=== PATIENT | male | born 1960 | race Caucasian/White ===

== ENCOUNTER → 2016-05-06 | Outpatient (CLI) | payer BC ==
[~2016-05-06] MED LIST: CENTRUM SILVER1 EAC3 PO; COMPAZINE10 MG PO; LEVAQUIN500 MG PO; LEVOFLOXACIN500 MG PO; MEDROL DOSEPAK4 MG PO; SKELAXIN800 MG PO; ULTRAM50 MG PO
== END | disposition home or self-care (01) ==
LOC: AMB 04-27 09:00
DX: R33.9 Retention of urine, unspecified (principal)
CPT/HCPCS: 99212

== ENCOUNTER 2016-08-23 21:01 | Emergency (ER) | payer BC ==
[~2016-08-23] VITALS: Ht 160 cm; Wt 64.5 kg
[2016-08-23 23:39] LABS: HEMATOCRIT 44.8 % (38.0-50.0); MCH 27.9 PG (29.0-34.0); MCHC 32.4 G/DL (30.0-36.0); MCV 86.3 FL (86-99); MEAN PLAT.VOLUME 9.1 uM^3 (9.0-12.4); PLATELET COUNT 383 K/uL (156-360); RBC DIS.WIDTH-CV 13.3 % (11.8-14.6); RBC DIS.WIDTH-SD 41.8 % (39-53); RED BLOOD COUNT 5.19 M/uL (4.00-5.50)
[2016-08-23 23:52] LABS: CHLORIDE 101 mEq/L (99-109); POTASSIUM 3.7 mEq/L (3.7-5.4); SODIUM 137 mEq/L (136-147)
[2016-08-23 23:54] LABS: GLUCOSE 109 mg/dL (70-99)
[2016-08-23 23:55] LABS: ANION GAP 9 MEQ/L (2-14)
[2016-08-23 23:58] LABS: GFR ESTIMATE (CALCULATED) > 59 mL/min/
[2016-08-23 23:59] LABS: UREA NITROGEN (BUN) 12 mg/dL (9-23)
[2016-08-24] MEDS ORDERED: VENTOLIN HFA18 GM IH (00:19)
[2016-08-24] MEDS ORDERED: PREDNISONE50 MG PO (00:19)
[2016-08-24] MEDS ORDERED: AZITHROMYCIN250 MG PO (00:19)
[2016-08-24 00:51] LABS: TROP-I INTERPRETATION NEGATIVE; TROPONIN-I < 0.01 ng/mL (0.0-0.30)
[2016-08-24 01:19] VITALS: BP 133/83
== END 2016-08-24 01:20 | disposition home or self-care (01) ==
LOC: EXP 21:01 → EME 21:01
DX: J20.9 Acute bronchitis, unspecified (principal)
CPT/HCPCS: 71020; 80048; 84484; 85027; 93005; 94640; 99281; 99284; J7512

== ENCOUNTER → 2016-11-11 | Outpatient (CLI) | payer BC ==
[~2016-11-11] MED LIST changes: +AZITHROMYCIN250 MG PO; +PREDNISONE50 MG PO; +VENTOLIN HFA18 GM IH
== END | disposition home or self-care (01) ==
LOC: AMB 08:13
DX: N39.9 Disorder of urinary system, unspecified (principal); H91.90 Unspecified hearing loss, unspecified ear; Z53.21 Procedure and treatment not carried out due to patient leaving prior to being seen by health care provider
CPT/HCPCS: 99211

== ENCOUNTER 2017-05-04 23:07 | Emergency (ER) | payer BC ==
[~2017-05-04] VITALS: Ht 160 cm; Wt 66.2 kg
[2017-05-05] MEDS ORDERED: CIPROFLOXACIN H10 ML LEFT EYE (01:19)
[2017-05-05 01:48] VITALS: BP 138/88
== END 2017-05-05 01:48 | disposition home or self-care (01) ==
LOC: EME 23:07
DX: S05.02XA Injury of conjunctiva and corneal abrasion without foreign body, left eye, initial encounter (principal); H11.32 Conjunctival hemorrhage, left eye; H91.90 Unspecified hearing loss, unspecified ear
CPT/HCPCS: 99281; 99283

== ENCOUNTER → 2017-05-20 | Outpatient (CLI) | payer BC ==
[~2017-05-20] MED LIST changes: +CIPROFLOXACIN H10 ML LEFT EYE; +RAPAFLO8 MG PO
== END | disposition home or self-care (01) ==
LOC: AMB 13:48
DX: N40.1 Benign prostatic hyperplasia with lower urinary tract symptoms (principal); N13.8 Other obstructive and reflux uropathy; R39.11 Hesitancy of micturition; R39.14 Feeling of incomplete bladder emptying; R39.16 Straining to void; N52.1 Erectile dysfunction due to diseases classified elsewhere; Z80.59 Family history of malignant neoplasm of other urinary tract organ
CPT/HCPCS: 99212

== ENCOUNTER 2017-06-06 11:46 | Day surgery (SDC) | payer BC ==
[~2017-06-06] VITALS: Ht 162.6 cm; Wt 63.5 kg
[2017-06-06 12:34] VITALS: BP 145/73
[2017-06-06 15:30] VITALS: BP 118/78
[2017-06-06 15:55] VITALS: BP 129/83
== END 2017-06-06 15:57 | disposition home or self-care (01) ==
LOC: SDC 11:46
PROC: 0TJB8ZZ Inspection of Bladder, Via Natural or Artificial Opening Endoscopic (ICD-10-PCS; principal; 2017-06-06)
DX: N40.1 Benign prostatic hyperplasia with lower urinary tract symptoms (principal); N13.8 Other obstructive and reflux uropathy
CPT/HCPCS: J0690; J2250

== ENCOUNTER → 2017-08-15 | Outpatient (CLI) | payer BC | END | disposition home or self-care (01) | LOC: AMB 13:44 | DX: N40.1 Benign prostatic hyperplasia with lower urinary tract symptoms (principal); N13.8 Other obstructive and reflux uropathy; R39.11 Hesitancy of micturition; G89.29 Other chronic pain; M54.9 Dorsalgia, unspecified; H91.90 Unspecified hearing loss, unspecified ear | CPT/HCPCS: 99212 ==

== ENCOUNTER 2017-08-31 05:30 | Day surgery (SDC) | payer BC ==
[~2017-08-31] VITALS: Ht 162.6 cm; Wt 63.6 kg
[2017-08-31 05:59] VITALS: BP 123/82
[2017-08-31 12:26] VITALS: BP 124/73
[2017-08-31 13:16] VITALS: BP 144/77
[2017-08-31 14:01] VITALS: BP 136/84
== END 2017-08-31 14:30 | disposition home or self-care (01) ==
LOC: SDC 05:30
PROC: 0V507ZZ Destruction of Prostate, Via Natural or Artificial Opening (ICD-10-PCS; principal; 2017-08-31)
DX: N40.1 Benign prostatic hyperplasia with lower urinary tract symptoms (principal); N32.0 Bladder-neck obstruction; R39.11 Hesitancy of micturition
CPT/HCPCS: C1713; J0131; J0330; J0690; J1100; J1170; J2250; J2405; J3010

== ENCOUNTER 2017-09-03 12:25 | Emergency (ER) | payer BC ==
[~2017-09-03] VITALS: Ht 160 cm; Wt 66.0 kg
[2017-09-03 14:06] VITALS: BP 159/106
== END 2017-09-03 14:49 | disposition home or self-care (01) ==
LOC: EME 12:25
PROC: 0T9B70Z Drainage of Bladder with Drainage Device, Via Natural or Artificial Opening (ICD-10-PCS; principal; 2017-09-03)
DX: R33.9 Retention of urine, unspecified (principal); H91.90 Unspecified hearing loss, unspecified ear; Z98.890 Other specified postprocedural states
CPT/HCPCS: 99281; 99283

== ENCOUNTER → 2017-09-06 | Outpatient (CLI) | payer BC | END | disposition home or self-care (01) | LOC: AMB 08:30 | PROC: 0TPB70Z Removal of Drainage Device from Bladder, Via Natural or Artificial Opening (ICD-10-PCS; principal; 2017-09-06) | DX: Z46.6 Encounter for fitting and adjustment of urinary device (principal); N40.1 Benign prostatic hyperplasia with lower urinary tract symptoms; R33.8 Other retention of urine | CPT/HCPCS: 99211 ==

== ENCOUNTER → 2017-09-14 | Outpatient (CLI) | payer BC | END | disposition home or self-care (01) | LOC: AMB 13:25 | DX: N40.1 Benign prostatic hyperplasia with lower urinary tract symptoms (principal); N32.0 Bladder-neck obstruction; N52.1 Erectile dysfunction due to diseases classified elsewhere; Z98.890 Other specified postprocedural states; H91.90 Unspecified hearing loss, unspecified ear | CPT/HCPCS: 99212 ==